=== PATIENT | female | born 1985 | race African-American/Black ===

== ENCOUNTER 2016-09-13 16:25 | Emergency (ER) | payer OTHER ==
--- NOTE | ~2016-09-13 | EKG ---
PATIENT: JAME DE SANTIAGO UNIT #: [id number] Ventricular Rate: 67 BPM Atrial Rate: 67 BPM P-R Interval: 146 ms QRS Duration: 86 ms Q-T Interval: 350 ms QTC Calculation(Bezet): 369 ms P Madison: 75 degrees Calculated R Madison: 24 degrees Calculated T [place]: 47 degrees Diagnosis Line: Normal sinus rhythm Diagnosis Line: Normal ECG Diagnosis Line: No previous ECGs available Diagnosis Line: Confirmed by JANET CABRERA MD ([id number]) on 09/14/2016 Diagnosis Line: 3:31:02 PM INTERPRETING MD: RICK SANTANA
--- NOTE | ~2016-09-13 | CR72 ---
[facility] A Service of [facility] & [facility] RADIOLOGY TEXT RESULTS PATIENT: JAME DE SANTIAGO LOCATION: [facility] : 83 UNIT #: [id number] AGE: [address]: Chester Kitchen MD SEX: F ORDER DR: [id number] [facility] [address] [place], [place] [address] [id number] E MR#: [id number] Acc #: [id number] NAME: JAME DE SANTIAGO : 1985 SEX: F STUDY DATE/TIME: 09/13/2016 17:11 UNIT: [facility] ROOM: STUDY DESCRIPTION: CR Chest Single View Portable Attending Physician: Chester Kitchen M.D. Ordering Physician: Chester Kitchen M.D. Primary Care Physician: Primary Care Physician No MEDICAL IMAGING REPORT This report is preliminary unless electronic signature is present EXAM Portable chest x-ray 09/13/2016 HISTORY Chest pain, short of air, began two weeks ago COMPARISON AP radiograph of the chest is presented COMPARISON 06/09/2004 FINDINGS The bony structures are unremarkable. Heart and mediastinum normal in size and contour. The lungs are well inflated and clear. There is no indication of acute pulmonary disease, pleural effusion or pneumothorax. No suspicious nodule. Dictated by... Anthony Uriostegui M.D. THIS IS AN ELECTRONICALLY VERIFIED REPORT Anthony Uriostegui M.D. at 09/15/2016 11:34 AM CASPER/leslie TD: 09/14/2016 13:00 JOB #: [id number] MEDICAL IMAGING REPORT Page 1 of 1 COPY
[2016-09-13 18:16] LABS: BASOPHIL# 0.1 X10e3 (0-0.3); BASOPHIL% 0.7 % (0-2.5); EOSINOPHIL# 0.4 X10e3 (0-0.7); EOSINOPHIL% 3.6 % (0.0-7.0); HEMATOCRIT 39.3 % (35.0-45.0); HEMOGLOBIN 12.4 gm/dL (12.0-16.0); LYMPHOCYTE# 3.6 X10e3 (1.0-3.5); LYMPHOCYTE% 36.8 % (17.0-45.0); MEAN CELL VOLUME 82.9 FL (83-96); MEAN CORPUSCULAR HEMOGLOBIN 26.2 PG (28-34); MEAN CORPUSCULAR HGB CONC 31.5 g/dL (30-36); MEAN PLATELET VOLUME 9.1 FL (6.5-11.5); MONOCYTE# 0.7 X10e3 (0-1.0); MONOCYTE% 7.2 % (3.0-12.0); NEUTROPHIL# 5.1 X10e3 (1.5-7.1); NEUTROPHIL% 51.7 % (40-75); PLATELET COUNT 279 X10e3 (140-420); RED BLOOD COUNT 4.74 X10e (3.90-5.30); RED CELL DISTRIBUTION WIDTH 15.2 % (11.0-15.5); WHITE BLOOD COUNT 9.9 X10e3 (4.0-10.5)
[2016-09-13 18:19] LABS: DIFF IND NO
[2016-09-13 18:36] LABS: BILIRUBIN, DIRECT 0.1 mg/dL (0.0-0.2); BILIRUBIN,INDIRECT 0.6 mg/dL (0.0-0.9); BILIRUBIN,TOTAL 0.7 mg/dL (0.2-2.0); CALCIUM SERUM 9.1 mg/dL (8.4-10.2); CREATININE SERUM 0.8 mg/dL (0.6-1.4); GLOM FILT RATE Estimated 113.2 mL/min (>60); POTASSIUM 3.7 mmol/L (3.5-5.1); PROTEIN TOTAL SERUM 7.6 g/dL (6.0-8.3)
[2016-09-13 19:35] LABS: POC - CKMB <1.0 ng/mL (0.0-7.9); POC - TROPONIN <0.05 ng/mL (<=0.05)
== END 2016-09-13 20:10 | disposition home or self-care (01) ==
LOC: CED 16:25
PROVIDERS: Emergency Medicine
DX: R09.1 Pleurisy (principal)
CPT/HCPCS: 36415; 71010; 80048; 80076; 82553; 84484; 85025; 85379; 93005; 99285; J1885